=== PATIENT | male | born 1995 | race Caucasian/White ===

== ENCOUNTER 2016-10-29 21:07 | Emergency (ER) | payer BC ==
[~2016-10-29] VITALS: Ht 185.4 cm; Wt 100.0 kg
[2016-10-29 21:44] LABS: INFLUENZA B NEGATIVE
[2016-10-29 21:58] VITALS: BP 133/75; PULSE 102; TEMP 101.1
[2016-10-29] MEDS ORDERED: TAMIFLU 75MG75 MG PO (21:59)
== END 2016-10-29 22:11 | disposition home or self-care (01) ==
LOC: COL.ER 21:07
PROVIDERS: Nurse Practitioner
DX: J10.1 Influenza due to other identified influenza virus with other respiratory manifestations (principal)